=== PATIENT | male | born 1945 | race Two or more races ===

== ENCOUNTER → 2017-03-04 | Emergency (ER) | payer MEDICARE, OTHER ==
[~2017-03-04] VITALS: Ht 180.3 cm; Wt 59.0 kg
[~2017-03-04] MED LIST: Sodium Chloride 500ML 500 ML IV ONE
[2017-03-04 14:55] VITALS: BP 70/40
[2017-03-04 15:44] LABS: MEAN CORPUSCULAR HEMOGLOBIN 29.4 PG (27.0-31.0); MEAN CORPUSCULAR VOLUME 95 FL (80-99); MEAN PLATELET VOLUME 6.7 FL (6.5-10.1); PLATELET COUNT 215 K/UL (150-450); RED BLOOD COUNT 2.98 M/UL (4.70-6.10); RED CELL DISTRIBUTION WIDTH 14.1 % (11.6-14.8)
[2017-03-04 15:45] LABS: ANION GAP 12 mmol/L (5-15); CALCIUM 7.3 MG/DL (8.5-10.1); CARBON DIOXIDE 21 MMOL/L (21-32); CHLORIDE 104 MMOL/L (98-107); CREATININE 1.6 MG/DL (0.55-1.30); POTASSIUM 3.4 MMOL/L (3.5-5.1); SODIUM 137 MMOL/L (136-145)
[2017-03-04 15:47] LABS: WHITE BLOOD COUNT 2.1 K/UL (4.8-10.8)
--- NOTE | 2017-03-04 16:08 | Diagnostic Imaging Report ---
Indication: Dyspnea Comparison: None A single view chest radiograph was obtained. Findings: Cardiomediastinal appearance is within normal limits for age. Pulmonary vascularity is appropriate. The diaphragmatic contour is smooth and costophrenic angles are sharp. No pleural effusions are identified. The bones are unremarkable. Impression: No acute findings
[2017-03-04 16:13] LABS: ALANINE AMINOTRANSFERASE 15 U/L (12-78); ALBUMIN/GLOBULIN RATIO 0.6 (1.0-2.7); ASPARTATE AMINO TRANSFERASE 53 U/L (15-37); CKMB 0.6 NG/ML (0.0-3.6); LIPASE 94 U/L (73-393)
[2017-03-04 16:16] VITALS: BP 98/61
[2017-03-04 17:01] LABS: ANISOCYTOSIS 1+; BAND NEUTROPHILS % (MANUAL) 4 % (0-8); BASOPHILS % (MANUAL) 0 % (0-2); EOSINOPHILS % (MANUAL) 1 % (0-3); HYPOCHROMASIA 1+; LYMPHOCYTES % (MANUAL) 26 % (20-45); NEUTROPHILS % (MANUAL) 64 % (45-75); PLATELET ESTIMATE ADEQUATE; PLATELET MORPHOLOGY NORMAL; TOTAL CELLS COUNTED 100
--- NOTE | 2017-03-04 17:38 | Emergency Room Report ---
History of Present Illness General Chief Complaint: Generalized Weakness Source: Patient Present Illness HPI Patient presents with complaints of weakness and hypotension Patient was sent heme oncologist office When he was found to be weak Hypotensive and sent to the ER Patient was given some fluids with minimal relief Patient has history of metastatic lung cancer Is on chemotherapy last dosing was last week patient had gone in for today's session And sent to the ER Patient is on fentanyl patch and was also given Dilaudid that the office At this time patient essentially complains of weakness denies any focal chest pain Denies any neck pain or photophobia Allergies: Coded Allergies: No Known Allergies (Unverified , 03/04/17) Patient History Past Medical History: see triage record Pertinent Family History: none Reviewed Nursing Documentation: PMH: Agreed, PSxH: Agreed Nursing Documentation-PMH Hx Cancer: Yes - colon Review of Systems All Other Systems: negative except mentioned in HPI Physical Exam Vital Signs Date Time Temp Pulse Resp B/P (MAP) Pulse Ox O2 Delivery O2 Flow Rate FiO2 03/04/17 14:55 96 16 70/40 98 Room Air Sp02 EP Interpretation: reviewed, normal General Appearance: other - appears weak Head: normocephalic, atraumatic Eyes: bilateral eye PERRL, bilateral eye EOMI ENT: dry mucus membranes Neck: full range of motion, supple Respiratory: no respiratory distress, no retraction, no accessory muscle use, crackles - fine crackles in both lower lobes Cardiovascular #1: regular rate, rhythm, no edema Gastrointestinal: normal bowel sounds, non tender, soft Musculoskeletal: normal inspection Neurologic: alert, oriented x3, responsive Skin: pallor Lymphatic: no adenopathy Procedures Critical Care Time Critical Care Time 40 minutes for initial critical presentation, hypotensive presentation concerning for acute cardiopulmonary arrest, multiple re\re evaluations, not including any procedural time Medical Decision Making Diagnostic Impression: Primary Impression: Syncope Additional Impressions: Elevated troponin Metastasis Dehydration ER Course Patient is a fairly complex patient with multiple differential to consideration including but not limited to cardiac cardiopulmonary and vascular emergencies Patient upon arrival is extremely concerning and hypotensive patient did have a fentanyl patch removed He was given further IV hydration At this time troponin is abnormal patient's EKG is also abnormal patient requires admission to Monitored bed And further reevaluation I spoke to the patient's Hemoccult is Patient is admitted with bed available and provided at this time the family Request to be let go He wants to leave AGAINST MEDICAL ADVICE Patient himself is also awake, and requesting to be let go Family and the patient are aware of the risk factors and extremely dangerous consideration of this With possible and cardiac arrest However understanding the risk factors they're leaving AGAINST MEDICAL ADVICE Labs Test 03/04/17 15:05 White Blood Count 2.1 K/UL (4.8-10.8) Red Blood Count 2.98 M/UL (4.70-6.10) Hemoglobin 8.7 G/DL (14.2-18.0) Hematocrit 28.2 % (42.0-52.0) Mean Corpuscular Volume 95 FL (80-99) Mean Corpuscular Hemoglobin 29.4 PG (27.0-31.0) Mean Corpuscular Hemoglobin Concent 31.0 G/DL (32.0-36.0) Red Cell Distribution Width 14.1 % (11.6-14.8) Platelet Count 215 K/UL (150-450) Mean Platelet Volume 6.7 FL (6.5-10.1) Neutrophils (%) (Auto) % (45.0-75.0) Lymphocytes (%) (Auto) % (20.0-45.0) Monocytes (%) (Auto) % (1.0-10.0) Eosinophils (%) (Auto) % (0.0-3.0) Basophils (%) (Auto) % (0.0-2.0) Differential Total Cells Counted 100 Neutrophils % (Manual) 64 % (45-75) Lymphocytes % (Manual) 26 % (20-45) Monocytes % (Manual) 5 % (1-10) Eosinophils % (Manual) 1 % (0-3) Basophils % (Manual) 0 % (0-2) Band Neutrophils 4 % (0-8) Platelet Estimate Adequate Platelet Morphology Normal Hypochromasia 1+ Anisocytosis 1+ Sodium Level 137 MMOL/L (136-145) Potassium Level 3.4 MMOL/L (3.5-5.1) Chloride Level 104 MMOL/L (98-107) Carbon Dioxide Level 21 MMOL/L (21-32) Anion Gap 12 mmol/L (5-15) Blood Urea Nitrogen 24 mg/dL (7-18) Creatinine 1.6 MG/DL (0.55-1.30) Estimat Glomerular Filtration Rate mL/min (>60) Glucose Level 84 MG/DL (74-106) Lactic Acid Level 1.80 mmol/L (0.66-2.22) Calcium Level 7.3 MG/DL (8.5-10.1) Total Bilirubin 0.9 MG/DL (0.2-1.0) Aspartate Amino Transf (AST/SGOT) 53 U/L (15-37) Alanine Aminotransferase (ALT/SGPT) 15 U/L (12-78) Alkaline Phosphatase 365 U/L (46-116) Total Creatine Kinase 114 U/L (26-308) Creatine Kinase MB 0.6 NG/ML (0.0-3.6) Creatine Kinase MB Relative Index 0.5 Troponin I 0.136 ng/mL (0.000-0.056) Pro-B-Type Natriuretic Peptide 853 pg/mL (0-125) Total Protein 6.0 G/DL (6.4-8.2) Albumin 2.3 G/DL (3.4-5.0) Globulin 3.7 g/dL Albumin/Globulin Ratio 0.6 (1.0-2.7) Lipase 94 U/L (73-393) EKG Diagnostic Results Rate: normal Rhythm: NSR ST Segments: other - Nonspecific ST changes, atrial enlargement Rhythm Strip Diag. Results EP Interpretation: yes Rate: 99 Rhythm: NSR, no PVC's, no ectopy Last Vital Signs Date Time Temp Pulse Resp B/P (MAP) Pulse Ox O2 Delivery O2 Flow Rate FiO2 03/04/17 16:16 106 24 98/61 97 Room Air Status: improved Disposition: AGAINST MEDICAL ADVICE Condition: Critical Referrals: NON PHYSICIAN (PCP) FELIPE JOHANSEN D.O. Mar 04, 2017 17:38
[2017-03-05 11:33] LABS: OTHERS PATHOLOGIST COMMENT
--- NOTE | 2017-03-05 12:59 | Cardiology Report ---
APPROVED REPORT EKG Measurement Heart [id number] Sinus tachycardia Biatrial enlargement Nonspecific ST abnormality Abnormal ECG
== END | disposition left against medical advice (07) ==
LOC: EDBD 14:54 → EDBEDREQ 15:10 → EMR 16:20 → CANBEDREQ 17:30
DX: R55 Syncope and collapse (principal); E86.0 Dehydration; C34.90 Malignant neoplasm of unspecified part of unspecified bronchus or lung; C79.9 Secondary malignant neoplasm of unspecified site; R77.8 Other specified abnormalities of plasma proteins
CPT/HCPCS: 36415; 71010; 80053; 82550; 82553; 83605; 83690; 83880; 84484; 85007; 85025; 87040; 93005; 96360; 96361